=== PATIENT | female | born 2000 | race Caucasian/White ===

== ENCOUNTER 2019-04-11 19:09 | Outpatient (CLI) | payer BC ==
[2019-04-11] MEDS ORDERED: PRENATAL FORMU1 EAC1 PO (20:28)
== END 2019-04-12 12:11 | disposition home or self-care (01) ==
LOC: OBS/DEL 19:09
DX: O35.8XX0 Maternal care for other (suspected) fetal abnormality and damage, not applicable or unspecified (principal); O26.892 Other specified pregnancy related conditions, second trimester; N93.0 Postcoital and contact bleeding

== ENCOUNTER 2019-07-06 10:10 | Inpatient (IN) | payer BC, OTHER ==
[~2019-07-06] VITALS: Ht 162.6 cm; Wt 67.6 kg
[~2019-07-06 10:10] MED LIST: PRENATAL FORMU1 EAC1 PO
[2019-07-07] MEDS ORDERED: OBSTETRIX DHA1 EACH (08:31)
[2019-07-13] MEDS ORDERED: HYDROXYZINE PAM50 MG PO (07:19)
[2019-07-13] MEDS ORDERED: NIFEDIPINE20 MG PO (07:19)
== END 2019-07-13 08:56 | disposition home or self-care (01) | DRG 833 ==
LOC: OB/GYN 10:10 → LDR 10:10 → OB/GYN 07-08 13:53
PROVIDERS: ADMIT Obstetrics & Gynecology
PROC: BY4FZZZ Ultrasonography of Third Trimester, Single Fetus (ICD-10-PCS; principal; 2019-07-06)
PROC: BY4FZZZ Ultrasonography of Third Trimester, Single Fetus (ICD-10-PCS; 2019-07-06)
PROC: 4A1HXCZ Monitoring of Products of Conception, Cardiac Rate, External Approach (ICD-10-PCS; 2019-07-06)
DX: O60.03 Preterm labor without delivery, third trimester (principal); Z34.03 Encounter for supervision of normal first pregnancy, third trimester

== ENCOUNTER 2019-08-06 05:56 | Inpatient (IN) | payer BC, OTHER ==
[~2019-08-06] VITALS: Ht 162.6 cm; Wt 72.6 kg
[~2019-08-06 05:56] MED LIST changes: +HYDROXYZINE PAM50 MG PO; +NIFEDIPINE20 MG PO; +OBSTETRIX DHA1 EACH
[2019-08-06] MEDS ORDERED: PRENATAL TABLE1 EAC1 PO (07:03)
== END 2019-08-08 10:48 | disposition home or self-care (01) | DRG 807 ==
LOC: OB/GYN 05:56 → LDR 05:56 → OB/GYN 09:35
PROVIDERS: ADMIT Obstetrics & Gynecology
PROC: 10E0XZZ Delivery of Products of Conception, External Approach (ICD-10-PCS; principal; 2019-08-06)
PROC: 4A1HXCZ Monitoring of Products of Conception, Cardiac Rate, External Approach (ICD-10-PCS; 2019-08-06)
DX: O80 Encounter for full-term uncomplicated delivery (principal); Z37.0 Single live birth; Z3A.39 39 weeks gestation of pregnancy

== ENCOUNTER 2025-02-10 08:41 | Outpatient (CLI) | payer BC, OTHER ==
[~2025-02-10 08:41] MED LIST changes: +PRENATAL TABLE1 EAC1 PO
== END 2025-02-10 08:51 | disposition home or self-care (01) ==
LOC: PRENATAL 08:41
PROVIDERS: ATTEND Obstetrics & Gynecology Maternal & Fetal Medicine
DX: O36.80X0 Pregnancy with inconclusive fetal viability, not applicable or unspecified (principal); Z36.82 Encounter for antenatal screening for nuchal translucency; Z14.8 Genetic carrier of other disease; Z3A.13 13 weeks gestation of pregnancy

== ENCOUNTER 2025-03-31 11:06 | Outpatient (CLI) | payer BC, OTHER | END 2025-03-31 11:11 | disposition home or self-care (01) | LOC: PRENATAL 11:06 | PROVIDERS: ATTEND Obstetrics & Gynecology Maternal & Fetal Medicine | DX: O44.00 Complete placenta previa NOS or without hemorrhage, unspecified trimester (principal); Z3A.20 20 weeks gestation of pregnancy ==

== ENCOUNTER 2025-06-26 13:35 | Outpatient (CLI) | payer BC, OTHER | END 2025-06-26 13:42 | disposition home or self-care (01) | LOC: PRENATAL 13:35 | PROVIDERS: ATTEND Obstetrics & Gynecology Maternal & Fetal Medicine | DX: O26.849 Uterine size-date discrepancy, unspecified trimester (principal); O36.8130 Decreased fetal movements, third trimester, not applicable or unspecified; O99.019 Anemia complicating pregnancy, unspecified trimester; Z3A.33 33 weeks gestation of pregnancy ==